=== PATIENT | female | born 1990 | race Caucasian/White ===

== ENCOUNTER 2019-02-15 07:06 | Emergency (ER) | payer OTHER ==
[~2019-02-15 07:06] MED LIST: ARIP10TA4 PO; BIRTH CONTROL; BUPR-472 PO; DEXA0.5T15 PO; ESCI20TA38 PO; OXYC-865 PO; PROM-110 PO
[2019-02-15] MEDS ORDERED: diphenhydrAMINE 50 MG/ML VIAL IVP ONE (07:15)
[2019-02-15] MEDS ORDERED: DEXAMETHASONE SOD PHOS 10MG/ML IVP ONE (07:15)
[2019-02-15] MEDS ORDERED: METOCLOPRAMIDE 10 MG/2 ML SDV IVP ONE (07:15)
[2019-02-15] MEDS ORDERED: MAGNESIUM SUL/D5W* 1 GM/100 ML 100 ML IVPB ONE (07:15)
[2019-02-15] MEDS ORDERED: NS(*) 0.9% 1000 ML BAG 1,000 ML IV ONE (07:15)
[2019-02-15] MEDS ORDERED: KETOROLAC 30 MG/ML VIAL IVP ONE (07:15)
--- NOTE | 2019-02-15 07:15 | ER Report ---
History and Physical Time Seen By MD: 07:10 Hx. of Stated Complaint: migraine since 399 unrelieved by tramadol HPI/ROS CHIEF COMPLAINT: Migraine HISTORY OF PRESENT ILLNESS: Patient is a 29-year-old female here with complaints of migraine which she describes as global, lacking light sensitivity, associated with nausea and vomiting since approximately 4:00 this morning. Patient reportedly took a tramadol without improvement. This is the patient's 3rd migraine. Reports that her current symptoms are similar to prior headaches. Denies recent illness. Patient is afebrile, hemodynamically stable, alert and oriented with no focal neurological deficits REVIEW OF SYSTEMS: Constitutional: No fever, no chills. Eyes: No discharge. ENT: No sore throat. Cardiovascular: No chest pain, no palpitations. Respiratory: No cough, no shortness of breath. Gastrointestinal: No abdominal pain, no vomiting. Genitourinary: No hematuria. Musculoskeletal: No back pain. Skin: No rashes. Neurological: + global headache. Allergies: Coded Allergies: No Known Drug Allergies (Unverified , 04/13/16) Home Meds Active Scripts Metoclopramide Hcl (REGLAN) 5 Mg Tablet, 5 MG PO Q8-12H PRN for NAUSEA/VOMITING, #20 TAB Prov:MAEVE GRAMAJO DO 02/15/19 Reported Medications Phentermine Hcl (PHENTERMINE HCL) 37.5 Mg Tablet, 37.5 MG PO BID 02/15/19 Discontinued Scripts Bupropion Hcl (WELLBUTRIN XL) 150 Mg Tab.er.24h, 150 MG PO QDAY, #30 TAB Prov:MALKI LYNN MD 07/13/18 Smoking Status: Current: Every Day Smoker Hx Substance Use Disorder: No Constitutional Vital Sign - Last 24 Hours 02/15/19 02/15/19 07:12 07:59 Temp 98.0 Pulse 80 Resp 16 B/P (MAP) 130/92 Pulse Ox 94 O2 Delivery Room Air O2 Flow Rate 1.0 Physical Exam General Appearance: The patient is alert, has no immediate need for airway protection and no signs of toxicity. NAD Eyes: Pupils equal and round no pallor or injection. ENT, Mouth: Mucous membranes are moist. Respiratory: There are no retractions, lungs are clear to auscultation. Cardiovascular: Regular rate and rhythm. Gastrointestinal: Abdomen is soft and non tender, no masses, bowel sounds normal. Neurological: No focal neuro deficits Skin: Warm and dry, no rashes. Musculoskeletal: Neck is supple non tender. Extremities are nontender, nonswollen and have full range of motion. DIFFERENTIAL DIAGNOSIS: After history and physical exam differential diagnosis was considered for headache including but not limited to subarachnoid hemorrhage, migraine headache, tension headache and infectious causes such as meningitis, pharyngitis and sinusitis. Medical Decision Making ED Course/Re-evaluation ED Course Patient is a 29-year-old female here with complaints of global headache which is similar to prior headaches. Patient is afebrile at time of evaluation, hemodynamically stable. Denies light sensitivity. Physical exam unremarkable. Patient was given IV fluid bolus, Toradol, Benadryl, Decadron, magnesium, Reglan. Patient had significant relief of symptoms. Return precautions provided. PCP follow-up recommended. Decision to Disposition Date: Feb 15, 2019 Decision to Disposition Time: 08:26 Depart Departure Latest Vital Signs Vital Signs Date Time Temp Pulse Resp B/P (MAP) Pulse Ox O2 Delivery O2 Flow Rate FiO2 02/15/19 07:59 1.0 02/15/19 07:12 98.0 80 16 130/92 94 Room Air Impression: Primary Impression: Headache Condition: Improved Disposition: HOME OR SELF-CARE Referrals: VU MORRIS (PCP) New Scripts Metoclopramide Hcl (REGLAN) 5 Mg Tablet 5 MG PO Q8-12H PRN for NAUSEA/VOMITING, #20 TAB Prov: MAEVE GRAMAJO DO 02/15/19 Patient Instructions: Acute Headache (ED) Additional Instructions: Please drink plenty of water. Please follow-up with her primary care provider. Please return promptly if you develop worsening headache, visual changes, fevers or chills, neck stiffness, inability to keep down food or fluids. MAEVE GRAMAJO DO Feb 15, 2019 07:15
[2019-02-15] MEDS ORDERED: PHEN-578 PO (07:26)
[2019-02-15] MEDS ORDERED: METO-733 PO (07:48)
[2019-02-15 08:30] VITALS: BP 124/85
== END 2019-02-15 08:34 | disposition home or self-care (01) ==
LOC: ER 07:15
DX: G43.909 Migraine, unspecified, not intractable, without status migrainosus (principal)
CPT/HCPCS: 96365; 96375; 99284; J1100; J1200; J1885; J2765; J3475; J7030